=== PATIENT | male | born 1995 | race Caucasian/White ===

== ENCOUNTER 2019-03-08 19:39 | Emergency (ER) | payer MEDICAID ==
[~2019-03-08] VITALS: Ht 175.3 cm; Wt 99.9 kg
[2019-03-08] MEDS ORDERED: LIDOCAINE 5% PATCH TOP STA (22:02)
[2019-03-08] MEDS ORDERED: IBUPROFEN 800MG TABLET PO ONE (22:15)
[2019-03-08 23:42] VITALS: BP 135/76
== END 2019-03-08 23:43 | disposition home or self-care (01) ==
LOC: ER 23:33
DX: M54.2 Cervicalgia (principal); J45.909 Unspecified asthma, uncomplicated; E78.00 Pure hypercholesterolemia, unspecified
CPT/HCPCS: 99284

== ENCOUNTER 2024-03-04 19:08 | Emergency (ER) | payer MEDICAID, OTHER ==
[~2024-03-04] VITALS: Ht 170.2 cm; Wt 94.2 kg
[2024-03-04 19:24] VITALS: BP 126/78; PULSE 76; RESP 16; TEMP 98; O2SAT 99
== END 2024-03-04 20:33 | disposition home or self-care (01) ==
LOC: ER 19:08
DX: T16.9XXA Foreign body in ear, unspecified ear, initial encounter (principal); W44.F9XA Other object of natural or organic material, entering into or through a natural orifice, initial encounter; Y93.89 Activity, other specified; Y92.89 Other specified places as the place of occurrence of the external cause; Y99.8 Other external cause status
CPT/HCPCS: 69200; 99284